=== PATIENT | female | born 2000 | race Caucasian/White ===

== ENCOUNTER 2023-10-23 21:36 | Inpatient (IN) | payer OTHER ==
[~2023-10-23] VITALS: Ht 160 cm; Wt 70.9 kg
[~2023-10-23 21:36] MED LIST: IRON 27 MG PO; PRENATAL
--- NOTE | 2023-10-23 21:45 | NUR ---
PT BROUGHT TO [facility] VIA WHEELCHAIR WITH SPOUSE AT SIDE. PT VOIDED AT THIS TIME AND CHANGED INTO CLEAN GOWN. PLACED ON EFM. SVE AT THIS TIME /-2. THE PATIENT IS REQUESTING AN EPIDURAL SOON THE DOCTOR WILL ALLOW. NOTIFIED OF THE PATIENT'S ARRIVAL AND MEDICAL HX. ADMISSION ORDERS GIVEN, ALL QUESTIONS ASKED AND ANSWERED. DISCUSSED PLAN OF CARE WITH PATIENT. NO OTHER CONCERNS AT THIS TIME.
[2023-10-23 22:15] VITALS: PULSE 91
[2023-10-23 22:34] LABS: BASO # 0.1 K/mm3 (0.0-0.2); BASO % 0.3 % (0.0-2.0); EOS % 0.2 % (0.0-4.0); GRAN # 12.7 K/mm3 (1.4-6.5); GRAN % 80.7 % (42.2-75.2); HEMATOCRIT 41.6 % (37.0-47.0); HEMOGLOBIN 14.3 g/dl (12.5-16.0); LYMPH % 12.8 % (20.0-51.0); MEAN CELL VOLUME 89 fl (80.0-100.0); MEAN CORPUSCULAR HEMOGLOBIN 31 pg (27-31); MEAN CORPUSCULAR HGB CONC 34 g/dl (33.0-37.0); MEAN PLATELET VOLUME 10.4 fl (7.4-10.4); MONO # 0.9 K/mm3 (0.1-0.6); MONO % 5.5 % (1.7-9.3); PLATELET COUNT 202 K/mm3 (130-400); RED BLOOD COUNT 4.69 M/mm3 (4.10-5.30)
[2023-10-23 22:45] VITALS: BP 140/88; PULSE 94
[2023-10-23 23:00] VITALS: BP 136/90; PULSE 89
--- NOTE | 2023-10-23 23:00 | NUR ---
2215: PT SITTING UP AT BEDSIDE D/T DISCOMFORT. EPIDURAL REQUESTED AT THIS TIME. WILFRED PÉREZ NOTIFIED OF REQUEST. 2235: WILFRED PÉREZ ON THE UNIT AT THIS TIME, DISCUSSION WITH PATIENT ABOUT RISKS OF THE PROCEDURE. 2245: WILFRED PÉREZ AT BEDSIDE PREPPING PATIENT FOR EPIDURAL. 2300: TEST DOSE ADMINISTERED AT THIS TIME. THE PATIENT TOLERATED PROCEDURE VERY WELL. NO CONCERNS AT THIS TIME.
[2023-10-23 23:15] VITALS: BP 129/75; PULSE 88
[2023-10-23 23:30] VITALS: BP 131/79; PULSE 75; TEMP 98.2
[2023-10-23 23:45] VITALS: PULSE 88
[2023-10-24] VITALS (29 sets, daily range): BP systolic 102–139; BP diastolic 40–89; PULSE 62–133; TEMP 98.1–98.6
--- NOTE | 2023-10-24 05:31 | NUR ---
0400: AROM PER . FLUID WAS CLEAR/BLOODTINGED. 0409: SVE COMPLETE PER . 0412: PT BEGINS PUSHING WITH . 0417: PITOCIN STARTED PER 'S REQUEST. PT IS NOT GIVING MUCH EFFORT, PT TO BE REPOSITIONED TO HELP LABOR DOWN. PT REQUESTING VACUUM ASSISTED DELIVERY AT THIS TIME. EDUCATES PATIENT THAT SHE DOES NOT USE VACUUMS UNLESS ABSOLUTELY NECESSARY. 0435: PT REPOSITIONED 0445: PT REPOSITIONED 0500: PT REPOSITIONED AT 0512: PT BEGAN TO FEEL PRESSURE, PER 'S EVALUATION PT IS READY TO BEGIN PUSHING AGAIN. MATERNAL EFFORT IS MINIMAL. 0525: VACUUM DISCUSSION PER AT THIS TIME. 0527: VACUUM PLACED ON HEAD. PRESSURIZED TO GREEN. TRACTION APPLIED WITH MATERNAL PUSHING. PRESSURIZATION RELEASED. 0530: VACUUM PRESSURIZED TO GREEN, TRACTION APPLIED WITH CONTRACTION. 0531: HEAD DELIVERED, PT ENCOURAGED TO PUSH AGAIN, HOWEVER PT LAYS BACK AND STATES "I CAN'T PUSH ANYMORE, CAN YOU JUST PULL THE BABY OUT?" ENCOURAGED THE PATIENT TO GIVE ANOTHER PUSH TO DELIVERY THE 'S BODY. VAVD OF VIABLE FEMALE INFANT. INFANT PLACED ON MATERNAL ABDOMEN, CORD CLAMPEDX2, CORD CUT PER FOB. INFANT PLACED SKIN TO SKIN WITH MOTHER. CARE OF ASSUMED BY LIZET CARRILLO. CORD BLOOD AND CORD GASSES OBTAINED. 0538: OF INTACT PLACENTA. 0545: RECOVER BEGINS AT THIS TIME. 0515: PT BEGINS PUSHING WITH . PT IS GIVING MINIMAL EFFORT. 0525: PT UNABLE TO GIVE PROPER PUSHING EFFORT, INFANT IS AT A +1 STATION. DISCUSSION REGARDING VACUUM DELIVERY
--- NOTE | 2023-10-24 06:15 | NUR ---
REPORT GIVEN TO LIZET SILVA.
--- NOTE | 2023-10-24 08:20 | NUR ---
0820 PT UP TO BATHROOM USING SHANELL STEADY AFTER UNABLE TO LIFT R LEG. ABLE TO VOID, CHANGE GOWN, PAD, PANTIES, AND TRANSFER TO NEW ROOM. PT COMFORTABLE IN BED.
--- NOTE | 2023-10-24 16:00 | NUR ---
VSS AND FUNDUS FIRM AND AT UMBILICUS AT THIS TIME. PT HAD THIRD VOID OF 250 CC AT 1545. INT TAKEN OUT AND CATHETER TIP INTACT. POC DISCUSSED AT THIS TIME. QUESTIONS INVITED AND ANSWERED.
[2023-10-25 03:00] VITALS: BP 108/63; PULSE 68; TEMP 98.8
[2023-10-25 07:47] VITALS: BP 114/63; PULSE 85; TEMP 98
[2023-10-25 08:10] VITALS: BP 118/82; PULSE 67; TEMP 97.6
[2023-10-25] MEDS ORDERED: MOTRIN 800800 MG/TAB PO (08:58)
--- NOTE | 2023-10-25 10:26 | NUR ---
Initial visit; Parents thanked Client Service Executive for offering congratulations and God's blessings for the of their daughter. Client Service Executive thanked family for choosing [facility].
== END 2023-10-25 15:40 | disposition home or self-care (01) | DRG 805 ==
LOC: LDRO 21:36 → LDR 22:00 → LDRO 22:03 → LDR 22:40 → OB 22:40
PROVIDERS: Student in an Organized Health Care Education/Training Program; ADMIT Obstetrics & Gynecology
PROC: 10D07Z6 Extraction of Products of Conception, Vacuum, Via Natural or Artificial Opening (ICD-10-PCS; principal; 2023-10-24)
DX: O36.5930 Maternal care for other known or suspected poor fetal growth, third trimester, not applicable or unspecified (principal); O45.93 Premature separation of placenta, unspecified, third trimester; Z37.0 Single live birth; Z3A.39 39 weeks gestation of pregnancy; O76 Abnormality in fetal heart rate and rhythm complicating labor and delivery; O99.824 Streptococcus B carrier state complicating childbirth; O75.81 Maternal exhaustion complicating labor and delivery
CPT/HCPCS: J2540; J2795; J7120